=== PATIENT | female | born 1975 | race Caucasian/White ===

== ENCOUNTER 2018-03-17 02:06 | Observation (INO) ==
[2018-03-17 04:46] LABS: Baso # (Auto) 0.1 th/mm3 (0.0-0.2); Baso % (Auto) 1.3 % (0.0-2.0); Eos # (Auto) 0.2 th/mm3 (0.0-0.4); Eos % (Auto) 4.2 % (0.0-4.0); Hematocrit 36.6 % (35.0-46.0); Hemoglobin 11.7 gm/dL (11.6-15.3); Lymph % (Auto) 33.3 % (9.0-44.0); Mean Corpuscular Hemoglobin 24.3 pg (27.0-34.0); Mean Platelet Volume 8.4 fL (7.0-11.0); Mono # (Auto) 0.4 th/mm3 (0.0-0.9); Mono % (Auto) 6.6 % (0.0-8.0); Neut # (Auto) 3.3 th/mm3 (1.8-7.7); Neut % (Auto) 54.6 % (16.0-70.0); Platelet Count 163 th/mm3 (150-450); Red Blood Count 4.82 mil/mm3 (4.00-5.30); Red Cell Distribution Width 17.3 % (11.6-17.2); White Blood Count 5.9 th/mm3 (4.0-11.0)
[2018-03-17 05:01] LABS: Activated Partial Thrombo Time 55.3 sec (24.3-30.1); INR 5.7 Ratio; Prothrombin Time 57.1 sec (9.8-11.6)
[2018-03-17 05:07] LABS: Calcium 8.9 mg/dL (8.5-10.1); Carbon Dioxide 23.9 meq/L (21.0-32.0); Potassium 3.8 meq/L (3.5-5.1)
[2018-03-17 05:14] VITALS: O2SAT 93
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
[2018-03-19 20:20] VITALS: BP 131/83; PULSE 107; RESP 20; TEMP 97.8
== END 2018-03-17 14:21 | disposition home or self-care (01) ==
LOC: NEDA 02:06 → NEPGCP 02:06 → NEPC 02:06 → NEPGCP 08:33
PROVIDERS: ADMIT Surgery; ATTEND Surgery